=== PATIENT | male | born 1955 | race Caucasian/White ===

== ENCOUNTER 2017-01-02 13:58 | Inpatient (IN) | payer MEDICAID ==
[~2017-01-02] VITALS: Ht 182.9 cm; Wt 81.8 kg
--- NOTE | 2017-01-02 14:04 | ERA ---
ER Documentation Chief Complaint Date/Time DATE: 01/02/17 TIME: 14:03 Chief Complaint Altered level of consciousness HPI The patient is a 61-year-old male, presenting to the ER because of acute altered level of consciousness that happened about 5-10 minutes prior to arrival. He was sitting at work when his coworkers noted him shaking and altered. He did not have any trauma. He was unable to provide any history upon arrival to the ER neither to the journeyman painter or myself. We will unable to obtain any history from the patient Past medical/surgical history/SH: Unknown upon arrival, however he stated that he has history of high blood pressure but noncompliant with his medication when he was awake later. He also smokes about half a pack a day, denies drinking, denies illicit drug ROS All systems reviewed and are negative except as per history of present illness. Medications Home Meds Reported Medications Aspirin (Low Dose Aspirin) 81 Mg Tablet., 81 MG PO DAILY, #30 TAB 01/02/17 Allergies Allergies: Uncoded Allergies: OYSTER (Allergy, Unknown, 01/02/17) Physical Exam Vitals Vital Signs Date Time Temp Pulse Resp B/P Pulse Ox O2 Delivery O2 Flow Rate FiO2 01/02/17 17:58 72 19 153/89 98 Nasal Cannula 2.0 01/02/17 16:22 62 18 145/103 98 Nasal Cannula 2.0 01/02/17 15:42 2.0 01/02/17 14:22 Nasal Cannula 3 01/02/17 14:09 98.8 93 20 150/90 98 Physical Exam Const: No acute distress. Head: Atraumatic. Eyes: Normal Conjunctiva. ENT: Normal External Ears, Nose and Mouth. Neck: Full range of motion. No meningismus. Resp: Clear to auscultation bilaterally. Cardio: Regular rate and rhythm. Abd: Soft, non distended, normal bowel sounds, non tender. Skin: No petechiae or rashes. Back: No midline or flank tenderness. Ext: No cyanosis, or edema. Neur: Altered. Unable to follow commands nor speak. He has some movement in the upper extremity but no movement in lower extremities Psych: Unable to perform due to his condition Result Diagram: 01/02/17 1405 01/02/17 1405 Results 24 hrs Laboratory Tests Test 01/02/17 14:05 01/02/17 14:56 01/02/17 16:00 White Blood Count 9.910^3/ul Red Blood Count 5.2310^6/ul Hemoglobin 16.5g/dl Hematocrit 47.8% Mean Corpuscular Volume 91.4fl Mean Corpuscular Hemoglobin 31.5pg Mean Corpuscular Hemoglobin Concent 34.5g/dl Red Cell Distribution Width 12.4% Platelet Count 72129^3/UL Mean Platelet Volume 9.2fl Neutrophils % 44.7% Lymphocytes % 37.7% Monocytes % 10.1% Eosinophils % 6.0% Basophils % 0.9% Nucleated Red Blood Cells % 0.0/100WBC Neutrophils # 4.410^3/ul Lymphocytes # 3.710^3/ul Monocytes # 1.010^3/ul Eosinophils # 0.610^3/ul Basophils # 0.110^3/ul Nucleated Red Blood Cells # 0.010^3/ul Prothrombin Time 13.1Sec Prothrombin Time Ratio 1.0 INR International Normalized Ratio 0.99 Activated Partial Thromboplast Time 28.4Sec Sodium Level 144mmol/L Potassium Level 4.7mmol/L Chloride Level 102mmol/L Carbon Dioxide Level 30mmol/L Anion Gap 17 Blood Urea Nitrogen 15mg/dl Creatinine 1.01mg/dl Glucose Level 100mg/dl Hemoglobin A1c 5.5% Calcium Level 9.7mg/dl Ammonia 19umol/l Troponin I 0.025ng/ml Salicylates Level < 1.0mg/dl Acetaminophen Level < 10.0ug/ml Ethyl Alcohol Level < 10.0mg/dl Bedside Glucose 95mg/dL Urine Color YELLOW Urine Clarity CLEAR Urine pH 9.0 Urine Specific [place] 1.011 Urine Ketones NEGATIVEmg/dL Urine Nitrite NEGATIVEmg/dL Urine Bilirubin NEGATIVEmg/dL Urine Urobilinogen 1+mg/dL Urine Leukocyte Esterase NEGATIVELeu/ul Urine Hemoglobin NEGATIVEmg/dL Urine Glucose NEGATIVEmg/dL Urine Total Protein NEGATIVEmg/dl Urine Opiates Screen NEGATIVE Urine Barbiturates NEGATIVE Urine Amphetamines Screen NEGATIVE Urine Benzodiazepines Screen NEGATIVE Urine Cocaine Screen NEGATIVE Urine Cannabinoids POSITIVE Current Medications Medications (Trade) Dose Ordered Sig/Giorgi Route PRN Reason Start Time Stop Time Status Last Admin Dose Admin Clopidogrel Bisulfate (plaVIX) 75 mg ONCE ONCE PO 01/02/17 15:00 01/02/17 15:01 DC 01/02/17 14:47 Aspirin (Aspirin) 325 mg ONCE ONCE PO 01/02/17 15:00 01/02/17 15:01 DC 01/02/17 14:47 IV Flush (NS 3 ml) 3 ml PER PROTOCOL IV 01/02/17 18:00 Ondansetron HCl (Zofran Inj) 4 mg Q6H PRN IV NAUSEA AND/OR VOMITING 01/02/17 18:00 Aspirin (Aspirin) 81 mg DAILY PO 01/03/17 09:00 Clopidogrel Bisulfate (plaVIX) 75 mg DAILY PO 01/03/17 09:00 Acetaminophen (Tylenol Tab) 650 mg Q6H PRN PO PAIN LEVEL 1-3 OR FEVER 01/02/17 18:00 Acetaminophen/ Hydrocodone Bitart ([place] (5/325)) 1 tab Q6H PRN PO PAIN LEVEL 4-6 01/02/17 18:00 Morphine Sulfate (morphine) 2 mg Q4H PRN IV PAIN LEVEL 7-10 01/02/17 18:00 Magnesium Hydroxide (Milk Of Mag) 30 ml DAILY PRN PO CONSTIPATION 01/02/17 18:00 Bisacodyl (Dulcolax) 5 mg DAILY PRN PO CONSTIPATION 01/02/17 18:00 Famotidine (Pepcid) 20 mg Q12 PO 01/02/17 21:00 Atorvastatin Calcium (Lipitor) 40 mg HS PO 01/02/17 21:00 Procedures/[place] [id number] Radiology Main Line: [phone] DIAGNOSTIC IMAGING REPORT Patient: CARLI CATALAN : 01/01/1956 Age: 61 Sex: M MR #: [id number] DOS: 01/02/17 1404 Ordering MD: AJ PEDRAZA MD Location: E/R Room/Bed: PROCEDURE: XR Chest. CLINICAL INDICATION: Chest pain , CVA TECHNIQUE: Single portable view of the chest was obtained COMPARISON: None FINDINGS: The heart is enlarged. The lungs are clear. There is no pleural effusion or pneumothorax. RPTAT: AA IMPRESSION: Mild Cardiomegaly. .Otis Quigley MD, MD Date Time Electronically viewed and signed by .Otis Quigley MD, MD on 01/02/2017 15: 09 .S/ CC: AJ PEDRAZA MD [place] [address] Radiology Main Line: [phone] DIAGNOSTIC IMAGING REPORT Patient: CARLI CATALAN : 01/01/1956 Age: 61 Sex: M MR #: [id number] DOS: 01/02/17 1404 Ordering MD: AJ PEDRAZA MD Location: E/R Room/Bed: PROCEDURE: CT Brain without contrast. CLINICAL INDICATION: Possible Stroke TECHNIQUE: A CT of the brain was performed on a [employer] LightSpeed 64-slice CT scanner utilizing axial imaging from the skull base through the vertex without IV contrast. Multiplanar reformatted images were made. Images were reviewed on a PACS workstation. The CTDIvol is 39.56 mGy and the DLP is 720.23 mGycm. COMPARISON: None FINDINGS: There are areas of encephalomalacia in the right parietal lobe, nonspecific but compatible with chronic / prior infarcts. However, there are areas of loss of hurst-white matter differentiation in the right parietal lobe and extending into the right posterior temporal lobe, compatible with a superimposed acute ischemic stroke. In addition, there is focal loss of hurst-white matter differentiation in the right frontal opercular region, also consistent with acute ischemic ischemic stroke. There is no midline shift or significant mass effect. There is no evidence of acute intracranial hemorrhage. There is moderate diffuse cerebral volume loss, likely age-related. The visualized orbits are unremarkable. Mucosal disease is seen within the partially imaged bilateral ethmoid sinuses. The partially imaged mastoid air cells are clear. No acute fracture or suspicious osseous lesion is identified. IMPRESSION: 1. Evidence of acute ischemia/infarct in the right inferior parietal lobe, right posterior temporal lobe, and right frontal operculum. More superiorly within the right parietal lobe and adjacent to the trigone of the right lateral ventricle, there are areas of encephalomalacia, compatible with old/chronic infarcts. MRI brain may provide a more sensitive and specific evaluation for acute and/or chronic ischemic injury. 2. No evidence of acute intracranial hemorrhage. 3. Critical findings were discussed with Dr. Pedraza of [facility] ED via phone at 14:28 on 01/02/2017. RPTAT: PP Piage Merlos Physician Date Time Electronically viewed and signed by Paige Merlos Physician on 01/02/2017 14: 49 RC/ CC: AJ PEDRAZA MD EKG: Read by emergency physician Rate/Rhythm: Normal Sinus Rhythm 73 beats/min QRS, ST, T-waves: No ST elevation, no T inversion, PAC, lateral inferior T abnormality Impression: Abnormal EKG MEDICAL MAKING DECISION: The patient is a 61-year-old male, presenting with acute stroke with spontaneous recovery, most likely TIA. Code stroke was activated immediately after I evaluated the patient at 2:04 PM. I discussed the patient with the stroke neurologist Dr Mckay at 2:10 PM and again at 2:30 PM who did not recommend TPA because of uncertain onset and recommended aspirin and Plavix and admitted for further evaluation with MRI is of the brain and the neck. He was treated with aspirin 325 mg as needed Plavix 75 mg p.o. On reevaluation, he is awake, alert, but was not aware of what happened to him. Neurological exam is unremarkable The differential diagnoses considered include but are not limited to TIA, CVA, medication non-compliance, alcohol intoxication or withdrawal, drug intoxication or withdrawal, endocrine disorder, trauma, CVA, tumor, metabolic encephalopathy, septic encephalopathy. Critical Care: Time: 35 minutes excluding all billable procedures. Treatments/Evaluations: Close monitoring and treatment of unstable vital signs, cardiorespiratory, and neurologic status, while maintaining tight balance of fluid, respiratory, and cardiac interventions. Departure Diagnosis: Primary Impression: Acute embolic stroke Condition: Serious Comments I discussed the findings with the patient. I discussed the patient with the on- call hospitalist Dr Peres who was made aware of the lab, the treatment, the patient condition. The patient is admitted to Tel at 2:15 pm AJ PEDRAZA MD Jan 02, 2017 14:04
[2017-01-02 14:18] LABS: BASOPHIL # 0.1 10^3/ul (0.0-0.1); BASOPHILS % 0.9 % (0.0-2.0); EOSINOPHILS # 0.6 10^3/ul (0.0-0.5); HEMATOCRIT 47.8 % (42.0-52.0); HEMOGLOBIN 16.5 g/dl (14.0-18.0); LYMPHOCYTES # 3.7 10^3/ul (0.8-2.9); LYMPHOCYTES % 37.7 % (15.0-51.0); MEAN CORPUSCULAR HEMOGLOBIN 31.5 pg (29.0-33.0); MEAN CORPUSCULAR HGB CONC 34.5 g/dl (32.0-37.0); MEAN CORPUSCULAR VOLUME 91.4 fl (82.0-101.0); MEAN PLATELET VOLUME 9.2 fl (7.4-10.4); MONOCYTES % 10.1 % (0.0-11.0); NEUTROPHIL # 4.4 10^3/ul (1.6-7.5); NEUTROPHILS % 44.7 % (39.0-77.0); PLATELET COUNT 203 10^3/UL (140-415); RED BLOOD COUNT 5.23 10^6/ul (4.70-6.10); RED CELL DISTRIBUTION WIDTH 12.4 % (11.5-14.5); WHITE BLOOD COUNT 9.9 10^3/ul (4.8-10.8)
[2017-01-02 14:34] LABS: INR 0.99; PROTIME 13.1 Sec (12.2-14.2)
[2017-01-02 14:35] LABS: PARTIAL THROMBOPLASTIN TIME 28.4 Sec (25.0-35.0)
[2017-01-02 14:39] LABS: ANION GAP 17 (8-16); BLOOD UREA NITROGEN 15 mg/dl (7-20); CALCIUM 9.7 mg/dl (8.4-10.2); CARBON DIOXIDE 30 mmol/L (21-31); CHLORIDE 102 mmol/L (97-110); CREATININE 1.01 mg/dl (0.61-1.24); GLUCOSE 100 mg/dl (70-220); POTASSIUM 4.7 mmol/L (3.5-5.1); SODIUM 144 mmol/L (135-144)
[2017-01-02 14:46] LABS: ACETAMINOPHEN < 10.0 ug/ml (10.0-30.0); SALICYLATE < 1.0 mg/dl (5.0-30.0)
[2017-01-02 14:47] LABS: ETHANOL < 10.0 mg/dl
--- NOTE | 2017-01-02 14:47 | STROKE ---
Date/Time of Note Date/Time of Note DATE: 01/02/17 TIME: 14:18 Patient Information General Patient location: emergency Arrival Date Age 61 Gender male Weight 81.82 kg Vital Signs Vital Signs Vital Signs Date Time Temp Pulse Resp B/P Pulse Ox O2 Delivery O2 Flow Rate FiO2 01/02/17 14:09 98.8 93 20 150/90 98 Labs Hematology Labs Hematology Test 01/02/17 14:05 History & Physical Patient History Notes Pt Hx Reviewed History of Present Illness 61yo M presents with acute onset left sided weakness. Patient was at work and was observed to be shaking and not responding to questions. EMS was called at 1 :30pm. No further history is available at this time. Review of Systems Constitutional: no symptoms reported EENTM: no symptoms reported Respiratory: no symptoms reported Cardiovascular: no symptoms reported Gastrointestinal: no symptoms reported Genitourinary: no symptoms reported Musculoskeletal: no symptoms reported Skin: no symptoms reported Psychiatric/Neurological: no symptoms reported All Other Systems: Reviewed and Negative NIH Stroke Scale NIH Stroke Scale 1A - Level of Conciousness: 0 - Alert keenly [id number] LOC Questions: 0 - Answers both [id number] - LOC Commands: 1 - Performs one task2 - Best Gaze: 0 - Normal3 - Visual: 0 - No visual loss4 - Facial Palsy: 1 - Partial Akilayelon1H - Motor Arm - Left: 2 - Some effort to [id number] - Motor Arm - Right: 0 - No [id number] - Motor Leg - Left: 4 - No xlirbrbi4H - Motor Leg - Right: 4 - No movement7 - Limb Ataxia: 0 - Absent8 - Sensory: 0 - Normal9 - Best Language: 0 - No aphasia or normalDysarthria: 0 - NormalTotal Score: 12 Date/Time Recorded DATE: 01/02/17 TIME: 14:18 Submitted By Tarik Broderick t-PA Imaging Review Imaging Reviewed: Yes Date/Time Imaging Reviewed DATE: 01/02/17 TIME: 14:18 Imaging Findings acute ischemia in right MCA distribution Inclusion/Exclusion Criteria greater than 1/3 distribution of right MCA t-PA Administration Recommendation: No Weight 81.82 kg Recommedation submitted by Tarik Broderick Reason t-PA not Recommended above exclusion criteria t-PA Not Recommended Date/Time 01/02/17 14:35 Recommendations Impression Diagnosis acute ischemic stroke Recommendation 61yo M presents with acute onset decreased responsiveness. Neurological exam is notable for left arm and leg weakness, mild disorientation, and slow responses to questions. CT Head demonstrates acute ischemic stroke of the right middle cerebral artery. Patient is not a TPA candidate due to having more than 1/3 of the distribution of the right MCA involved on CT Head. I believe patient is not a candidate for neurointerventional treatment as I suspect much of the stroke is completed, based on the CT findings. I recommend workup to include MRI Brain without gadolinium, MRA of the head without gadolinium, MRA of the neck with gadolinium, and transthoracic echocardiogram. I recommend aspirin 81mg and Plavix 75mg daily for 3 weeks. shelter antiplatelet therapy to be determined based on the results of these tests. Diagnostic Labs: Lipid Proile Hgb A1C CMP CBC w/Diff Coags Therapy: Physical Therapy Speech Therapy Occupational Therapy Misc. Recommendations: Bedside Swallow Evaluation Pnumatic Compression Devices Stroke Education Smoking Education TARIK BRODERICK Jan 02, 2017 14:34
--- NOTE | 2017-01-02 14:49 | RADRPT ---
PROCEDURE: CT Brain without contrast. CLINICAL INDICATION: Possible Stroke TECHNIQUE: A CT of the brain was performed on a GE [id number] 64-slice CT scanner utilizing axial imaging from the skull base through the vertex without IV contrast. Multiplanar reformatted images were made. Images were reviewed on a PACS workstation. The CTDIvol is 39.56 mGy and the DLP is 720 .23 mGycm. COMPARISON: None FINDINGS: There are areas of encephalomalacia in the right parietal lobe, nonspecific but compatible with marketing director roly / prior infarcts. However, there are areas of loss of hurst-white matter differentiation in the right parietal lobe and extending into the right posterior temporal lobe, compatible with a superimp osed acute ischemic stroke. In addition, there is focal loss of hurst-white matter differentiation in the right frontal opercular region, also consistent with acute ischemic ischemic stroke. There is no midline shift or significant mass effect. There is no evidence of acute intracranial hemorrhage. There is moderate diffuse cerebral volume loss, likely age-related. The visualized orbits are unremarkable. Mucosal disease is seen within the partially imaged bilateral ethmoid sinuses. The partially imaged mastoid air cells are clear. No acute fracture or suspicious osseous lesion is identified. IMPRESSION: 1. Evidence of acute ischemia/infarct in the right inferior parietal lobe, right posterior temporal lobe, and right frontal operculum. More superiorly within the right parietal lobe and adjacent to t he trigone of the right lateral ventricle, there are areas of encephalomalacia, compatible with old/ chronic infarcts. MRI brain may provide a more sensitive and specific evaluation for acute and/or ch ronic ischemic injury. 2. No evidence of acute intracranial hemorrhage. 3. Critical findings were discussed with Dr. Sanchez of [facility] ED via phone at 1 4:28 on 01/02/2017. RPTAT: PP Physician Carolina Date Time Electronically viewed and signed by Physician Carolina on 01/02/2017 14:49 /
[2017-01-02 14:50] LABS: TROPONIN-I 0.025 ng/ml (0.00-0.12)
[2017-01-02] MEDS ORDERED: ASPIRIN 325 MG TAB PO ONE (15:00)
[2017-01-02] MEDS ORDERED: CLOPIDOGREL 75 MG TAB PO ONE (15:00)
--- NOTE | 2017-01-02 15:10 | RADRPT ---
PROCEDURE: XR Chest. CLINICAL INDICATION: Chest pain , CVA TECHNIQUE: Single portable view of the chest was obtained COMPARISON: None FINDINGS: The heart is enlarged. The lungs are clear. There is no pleural effusion or pneumothorax. RPTAT: AA IMPRESSION: Mild Cardiomegaly. .Otis Quigley MD, Date Time Electronically viewed and signed by .Otis Quigley MD, on 01/02/2017 15:09 .S/
[2017-01-02] MEDS ORDERED: ASPI-664 PO (15:13)
[2017-01-02 16:17] LABS: ADD UMIC NO; UR ASCORBIC ACID NEGATIVE (NEGATIVE); UR BILIRUBIN (Dip) NEGATIVE (NEGATIVE); UR BLOOD (Dip) NEGATIVE (NEGATIVE); UR CLARITY CLEAR (CLEAR); UR COLOR YELLOW (YELLOW); UR GLUCOSE (Dip) NEGATIVE (NEGATIVE); UR KETONES (Dip) NEGATIVE (NEGATIVE); UR LEUKOCYTE ESTERASE (Dip) NEGATIVE Leu/ul (NEGATIVE); UR NITRITE (Dip) NEGATIVE (NEGATIVE); UR SPECIFIC GRAVITY (Dip) 1.011 (1.003-1.030); UR TOTAL PROTEIN (Dip) NEGATIVE (NEGATIVE); UR UROBILINOGEN (Dip) 1+ mg/dL (NEGATIVE)
[2017-01-02 16:42] LABS: BARBITURATES NEGATIVE (NEGATIVE); BENZODIAZEPINES NEGATIVE (NEGATIVE); CANNABINOIDS POSITIVE (NEGATIVE); COCAINE NEGATIVE (NEGATIVE); OPIATES NEGATIVE (NEGATIVE)
--- NOTE | 2017-01-02 17:40 | HP ---
Date/Time of Note Date/Time of Note DATE: 01/02/17 TIME: 17:39 Assessment/Plan VTE Prophylaxis VTE Prophylaxis Intervention: SCD's Assessment/Plan Chief Complaint/Hosp Course 1. Acute ischemic infarct in the right inferior parietal lobe, right posterior temporal lobe, and right frontal operculum. The patient will be started on dual antiplatelet therapy as per the recommendations of teleneurologist. A neurology consult will be obtained. Carotid Doppler study will be obtained. A 2D echocardiogram will be obtained. Will obtain a physical therapy, occupational therapy, and speech therapy evaluation. Baseline labs including coagulation studies, hemoglobin A1c, lipid panel will be obtained. The patient will also be started on statins. 2. Essential hypertension. The patient verbalized that he has not been taking any medications at home. The patient will be allowed for permissive hypertension because of underlying acute stroke. 3. Nicotine use. Cessation will be advised. The patient will be provided with a nicotine patch if he has any symptoms of nicotine withdrawal. Plan: The patient will be admitted to inpatient telemetry floor. The patient will be started on a low-cholesterol diet. The patient will be started on DVT prophylaxis and gastrointestinal prophylaxis. The patient will remain a full code. Activities will be with assist. The rest of the patient's management will be based on the clinical course, inputs from consultants, and the results of diagnostic studies. Based on the patient's clinical presentation, he most probably requires at least 1 midnight's stay for further management and evaluation of his clinical presentation. The case and management of this patient was fully discussed with Dr. Peres. Problems: HPI/ROS Admit Date/Time Admit Date/Time Hx of Present Illness Reason for admission: Altered mental status. Consultants 1. Bryn Robert MD, Neurology. This is a 61-year-old male who denied any significant past medical history other than possible history of essential hypertension who was brought to the emergency room after he started acute mental status changes. As per the patient he was sitting at work. The patient's coworkers noted him shaking and and as per the patient he went backward with his rocking chair. The patient denied hitting his head. There was no reported seizures. A code stroke was activated in the emergency room. The patient underwent a stat CT scan of the brain that showed evidence of acute ischemia/infarct in the right inferior parietal lobe, right posterior temporal lobe and right frontal operculum. The patient was seen by a telemetry neurologist. Telemetry neurologist recommended no TPA. However, the neurologist recommended aspirin and Plavix. ROS Constitutional: no complaints Eyes: no complaints ENT: no complaints Respiratory: no complaints Cardiovascular: no complaints Gastrointestinal: no complaints Genitourinary: no complaints Musculoskeletal: no complaints Skin: no complaints Neurologic: no complaints Endocrine: no complaints Lymphatic: no complaints Psychological: anxiety Immunologic: no complaints PMH/Family/Social Past Medical History Medical History: hypertension Family History Significant Family History: hypertension Social History The patient works in [employer]. When asked about the living situation, the patient was crying. Alcohol Use: none Smoking Status: Current every day smoker Drug Use: marijuana Exam/Review of Systems Vital Signs Vitals Vital Signs Date Time Temp Pulse Resp B/P Pulse Ox O2 Delivery O2 Flow Rate FiO2 01/02/17 16:22 62 18 145/103 98 Nasal Cannula 2.0 01/02/17 14:09 98.8 Exam Exam General: Adequately build 61 year-old male lying in bed in no apparent distress. HEENT: Normocephalic, atraumatic. Eyes: Anicteric sclerae, conjunctivae clear. ENT: Nasal septum midline, oral mucosa moist. Neck supple, no JVD noticed. Respiratory: Bilaterally diminished breath sounds. No use of accessory muscles of respiration. No adventitious breath sounds. Cardiovascular: S1, S2 heard. No murmurs or gallops. Abdomen: Soft, nontender, and nondistended. Bowel sounds positive in all 4 quadrants. Genitourinary: Deferred. Extremities: No cyanosis, no clubbing, no edema. Peripheral pulses palpable. Neurologic: Cranial nerves II through XII grossly intact. The patient is awake, alert, and oriented. Equal strength in all 4 extremities. Psychologic: Depressed mood. Labs Result Diagram: 01/02/17 1405 01/02/[address] IMPRESSION: 1. Evidence of acute ischemia/infarct in the right inferior parietal lobe, right posterior temporal lobe, and right frontal operculum. More superiorly within the right parietal lobe and adjacent to the trigone of the right lateral ventricle, there are areas of encephalomalacia, compatible with old/chronic infarcts. MRI brain may provide a more sensitive and specific evaluation for acute and/or chronic ischemic injury. 2. No evidence of acute intracranial hemorrhage. COLLIN WINTER NP Jan 02, 2017 17:40
[2017-01-02] MEDS ORDERED: ONDANSETRON 4 MG INJ IV PRN (18:00)
[2017-01-02] MEDS ORDERED: morphine 2 MG INJ IV PRN (18:00)
[2017-01-02] MEDS ORDERED: NACL 0.9% 3 ML SYG IV SCH (18:00)
[2017-01-02] MEDS ORDERED: HYDROCODONE/APAP (5/325) TAB PO PRN (18:00)
[2017-01-02] MEDS ORDERED: ACETAMINOPHEN 325 MG TAB PO PRN (18:00)
[2017-01-02] MEDS ORDERED: MAGNESIUM HYDROXIDE 30ML CUP PO PRN (18:00)
[2017-01-02] MEDS ORDERED: BISACODYL (EC) 5 MG TAB PO PRN (18:00)
[2017-01-02 18:30] VITALS: TEMP 98.7
--- NOTE | 2017-01-02 18:58 | RADRPT ---
PROCEDURE: US Carotids. CLINICAL INDICATION: Stroke. TECHNIQUE: Multiple sonographic of the carotid arteries were obtained utilizing hurst scale imaging . Color and Doppler imaging was performed. The images were reviewed on a PACS workstation. COMPARISON: No prior studies are available for comparison. FINDINGS: Location:RightLeft CCA59.4 cm/sec60.3 cm/sec Prox ICA73.2 cm/coc888.9 cm/sec Mid ICA63.3 cm/scy353.6 cm/sec Dist ICA67.9 cm/gyc660.7 cm/sec ECA83.1 cm/chq150.0 cm/sec ICA/CCA:1.2 2.1 Antegrade flow is seen within the vertebral arteries bilaterally. Mild plaque is seen within the car otid system bilaterally. IMPRESSION: 1. 50-69% stenosis of the left internal carotid artery. 2. No significant stenosis of the right carotid arteries. 3. Antegrade flow in both vertebral arteries. Note: Ultrasound velocity criteria are extrapolated from diameter data as defined by the Society of Radiologists in Ultrasound Consensus Conference Radiology 2003; 229;340-346. This study indirectly r eferences the measurement of the distal ICA diameter as the denominator for stenosis measurement. RPTAT: HTAR .Dg Borges MD, Date Time Electronically viewed and signed by .Dg Borges MD, on 01/02/2017 18:58 .R/
[2017-01-02 20:58] VITALS: PULSE 67
[2017-01-02 21:07] VITALS: BP 165/96; RESP 20
[2017-01-02] MEDS: FAMOTIDINE 20 MG TAB PO SCH (21:47)
[2017-01-02] MEDS: ATORVASTATIN 40 MG TAB PO SCH (21:47)
[2017-01-03] VITALS (11 sets, daily range): BP systolic 136–185; BP diastolic 90–107; PULSE 58–116; RESP 18–20
[2017-01-03 08:00] LABS: BASOPHIL # 0.1 10^3/ul (0.0-0.1); BASOPHILS % 0.5 % (0.0-2.0); EOSINOPHILS # 0.3 10^3/ul (0.0-0.5); EOSINOPHILS % 2.1 % (0.0-7.0); HEMATOCRIT 50.9 % (42.0-52.0); HEMOGLOBIN 17.3 g/dl (14.0-18.0); LYMPHOCYTES # 2.9 10^3/ul (0.8-2.9); LYMPHOCYTES % 20.1 % (15.0-51.0); MEAN CORPUSCULAR HEMOGLOBIN 30.6 pg (29.0-33.0); MEAN CORPUSCULAR VOLUME 89.9 fl (82.0-101.0); MEAN PLATELET VOLUME 9.5 fl (7.4-10.4); MONOCYTE # 1.2 10^3/ul (0.3-0.9); NEUTROPHILS % 68.6 % (39.0-77.0); PLATELET COUNT 220 10^3/UL (140-415); RED BLOOD COUNT 5.66 10^6/ul (4.70-6.10); RED CELL DISTRIBUTION WIDTH 12.6 % (11.5-14.5); WHITE BLOOD COUNT 14.6 10^3/ul (4.8-10.8)
[2017-01-03] MEDS: ASPIRIN 81 MG TAB PO SCH (08:24)
[2017-01-03] MEDS: CLOPIDOGREL 75 MG TAB PO SCH (08:24)
[2017-01-03] MEDS: FAMOTIDINE 20 MG TAB PO SCH ×2 (08:24→22:18)
[2017-01-03 08:37] LABS: ALBUMIN 4.2 g/dl (3.3-4.9); ALBUMIN/GLOBULIN RATIO 1.1; BILIRUBIN,INDIRECT 1.3 mg/dl (0-1.1); BILIRUBIN,TOTAL 1.3 mg/dl (0.2-1.3); CALCIUM 9.9 mg/dl (8.4-10.2); CREATININE 0.97 mg/dl (0.61-1.24); POTASSIUM 4.5 mmol/L (3.5-5.1)
[2017-01-03 08:45] LABS: CHOL/HDL RATIO 4.8 RATIO; PHOSPHORUS 3.7 mg/dl (2.5-4.9)
[2017-01-03 08:46] LABS: TROPONIN-I 0.038 ng/ml (0.00-0.12)
[2017-01-03 08:53] LABS: CK-MB 1.2 ng/ml (0.0-2.4)
--- NOTE | 2017-01-03 11:39 | PN ---
Date/Time of Note Date/Time of Note DATE: 01/03/17 TIME: 11:36 Assessment/Plan VTE Prophylaxis VTE Prophylaxis Intervention: SCD's Lines/Catheters IV C[facility]ter Type (from [facility] Saline Lock Urinary Cath still in place: No Assessment/Plan Chief Complaint/Hosp Course 1. Acute ischemic infarct in the right inferior parietal lobe, right posterior temporal lobe, and right frontal operculum. Continue dual antiplatelet therapy. Pending brain MRI. Pending neurology consult. 2. Essential hypertension. The patient verbalized that he has not been taking any medications at home. The patient will be allowed for permissive hypertension because of underlying acute stroke. 3. Nicotine use. Cessation will be advised. The patient will be provided with a nicotine patch if he has any symptoms of nicotine withdrawal. 4. Fluids, electrolytes, and nutrition. Low-cholesterol diet. 5. DVT prophylaxis. Bilateral sequential compression devices. 6. Gastrointestinal prophylaxis with histamine 2 receptor blockers. 7. Plan. Continue telemetry monitoring. Await neurology evaluation. Pending brain MRI. Continue dual antiplatelet therapy and statin therapy. The case and management of this patient was fully discussed with Dr. Peres. Problems: Subjective 24 Hr Interval Summary Free Text/Dictation Denies any headache. Exam/Review of Systems Vital Signs Vitals Vital Signs Date Time Temp Pulse Resp B/P Pulse Ox O2 Delivery O2 Flow Rate FiO2 01/03/17 08:22 67 01/03/17 07:20 98.3 18 138/94 97 01/03/17 01:50 2.0 01/02/17 20:04 Room Air Nasal Cannula Intake and Output 01/02/17 01/02/17 01/03/17 15:00 23:00 07:00 Intake Total 300 ml Output Total 1050 ml Balance -1050 ml 300 ml Exam General: Adequately build 61 year-old male lying in bed in no apparent distress. HEENT: Normocephalic, atraumatic. Eyes: Anicteric sclerae, conjunctivae clear. ENT: Nasal septum midline, oral mucosa moist. Neck supple, no JVD noticed. Respiratory: Bilaterally diminished breath sounds. No use of accessory muscles of respiration. No adventitious breath sounds. Cardiovascular: S1, S2 heard. No murmurs or gallops. Abdomen: Soft, nontender, and nondistended. Bowel sounds positive in all 4 quadrants. Genitourinary: Deferred. Extremities: No cyanosis, no clubbing, no edema. Peripheral pulses palpable. Neurologic: Cranial nerves II through XII grossly intact. The patient is awake, alert, and oriented. Equal strength in all 4 extremities. Psychologic: Depressed mood. Results Result Diagram: 01/03/17 0735 01/03/17 0735 Results 24 hrs Laboratory Tests Test 01/02/17 14:05 01/02/17 14:56 01/02/17 16:00 01/03/17 07:35 White Blood Count 9.9 14.6 #H Red Blood Count 5.23 5.66 Hemoglobin 16.5 17.3 Hematocrit 47.8 50.9 Mean Corpuscular Volume 91.4 89.9 Mean Corpuscular Hemoglobin 31.5 30.6 Mean Corpuscular Hemoglobin Concent 34.5 34.0 Red Cell Distribution Width 12.4 12.6 Platelet Count 203 220 Mean Platelet Volume 9.2 9.5 Neutrophils % 44.7 68.6 Lymphocytes % 37.7 20.1 Monocytes % 10.1 8.0 Eosinophils % 6.0 2.1 Basophils % 0.9 0.5 Nucleated Red Blood Cells % 0.0 0.0 Neutrophils # 4.4 10.0 H Lymphocytes # 3.7 H 2.9 Monocytes # 1.0 H 1.2 H Eosinophils # 0.6 H 0.3 Basophils # 0.1 0.1 Nucleated Red Blood Cells # 0.0 0.0 Prothrombin Time 13.1 Prothrombin Time Ratio 1.0 INR International Normalized Ratio 0.99 Activated Partial Thromboplast Time 28.4 Sodium Level 144 145 H Potassium Level 4.7 4.5 Chloride Level 102 102 Carbon Dioxide Level 30 27 Anion Gap 17 H 21 H Blood Urea Nitrogen 15 15 Creatinine 1.01 0.97 Glucose Level 100 110 Hemoglobin A1c 5.5 Calcium Level 9.7 9.9 Ammonia 19 Troponin I 0.025 0.038 Thyroid Stimulating Hormone (TSH) 1.610 Free Thyroxine 1.22 Salicylates Level < 1.0 L Acetaminophen Level < 10.0 L Ethyl Alcohol Level < 10.0 Bedside Glucose 95 Urine Color YELLOW Urine Clarity CLEAR Urine pH 9.0 Urine Specific [place] 1.011 Urine Ketones NEGATIVE Urine Nitrite NEGATIVE Urine Bilirubin NEGATIVE Urine Urobilinogen 1+ H Urine Leukocyte Esterase NEGATIVE Urine Hemoglobin NEGATIVE Urine Glucose NEGATIVE Urine Total Protein NEGATIVE Urine Opiates Screen NEGATIVE Urine Barbiturates NEGATIVE Urine Amphetamines Screen NEGATIVE Urine Benzodiazepines Screen NEGATIVE Urine Cocaine Screen NEGATIVE Urine Cannabinoids POSITIVE Phosphorus Level 3.7 Magnesium Level 2.0 Total Bilirubin 1.3 Direct Bilirubin 0.00 Indirect Bilirubin 1.3 H Aspartate Amino Transf (AST/SGOT) 29 Alanine Aminotransferase (ALT/SGPT) 26 Alkaline Phosphatase 81 Creatine Kinase 75 Creatine Kinase Index 1.6 Creatinine Kinase MB (Mass) 1.20 Total Protein 8.0 Albumin 4.2 Globulin 3.80 H Albumin/Globulin Ratio 1.10 Triglycerides Level 80 Cholesterol Level 190 LDL Cholesterol, Calculated 135 HDL Cholesterol 39 Cholesterol/HDL Ratio 4.8 Medications Medications Current Medications Ondansetron HCl (Zofran Inj) 4 mg Q6H PRN IV NAUSEA AND/OR VOMITING; Start at 18:00 Aspirin (Aspirin) 81 mg DAILY PO Last administered on 01/03/17 08:24; Admin Dose 81 MG; Start 01/03/17 at 09:00 Clopidogrel Bisulfate (plaVIX) 75 mg DAILY PO Last administered on 01/03/17 08 :24; Admin Dose 75 MG; Start 01/03/17 at 09:00 Acetaminophen (Tylenol Tab) 650 mg Q6H PRN PO PAIN LEVEL 1-3 OR FEVER; Start at 18:00 Acetaminophen/ Hydrocodone Bitart ([place] (5/325)) 1 tab Q6H PRN PO PAIN LEVEL 4 -6; Start 01/02/17 at 18:00 Morphine Sulfate (morphine) 2 mg Q4H PRN IV PAIN LEVEL 7-10; Start 01/02/17 at 18:00 Magnesium Hydroxide (Milk Of Mag) 30 ml DAILY PRN PO CONSTIPATION; Start at 18:00 Bisacodyl (Dulcolax) 5 mg DAILY PRN PO CONSTIPATION; Start 01/02/17 at 18:00 Famotidine (Pepcid) 20 mg Q12 PO Last administered on 01/03/17 08:24; Admin Dose 20 MG; Start 01/02/17 at 21:00 Atorvastatin Calcium (Lipitor) 40 mg HS PO Last administered on 01/02/17 21:47 ; Admin Dose 40 MG; Start 01/02/17 at 21:00 COLLIN WINTER NP Jan 03, 2017 11:39
--- NOTE | 2017-01-03 20:04 | RADRPT ---
PROCEDURE: MR Brain without contrast. CLINICAL INDICATION: Stroke TECHNIQUE: An MRI of the brain was performed on a 1.5 ani scanner utilizing the following sequen leta: Sagittal T1 weighted, axial T2 weighted, axial FLAIR, coronal GRE, and axial diffusion weighted with ADC mapping. COMPARISON: 01/02/2017 CT brain FINDINGS: Multiple foci of restricted diffusion within the right anterior superior frontal gyrus, medial poste rior parietal lobe and, left superior frontal gyrus superior precentral gyrus and left parietal lobu le compatible with multiple foci of acute / early subacute ischemic infarction. Diffusion weighted signal hyperintensity in the right middle frontal gyrus suggestive of late subacute ischemic infarct ion and right parietal lobe compatible with T2 shine through . These findings are suggestive of leila ro volume disease no evidence of hemorrhagic transformation. Encephalomalacia are with extensive gliosis involving the posterior right temporal and occipital lo bes with ex vacuo dilatation of the right lateral ventricle compatible with remote ischemic infarct. Extensive periventricular and subcortical white matter T2 signal hyperintensity foci compatible wi th sequelae of chronic microvascular ischemic injury. The ventricles and subarachnoid spaces are moderately prominent compatible with central cerebral and cerebellar volume loss. Infarcts in the left cerebellar hemisphere No hypointense signal abnormalities are seen on the GRE images to suggest the presence of blood degr adation products. The posterior fossa contents, brainstem, seventh - eighth cranial nerve complexes, pituitary axis, o rbits, paranasal sinuses, and mastoid air cells are otherwise unremarkable. Normal flow voids are visible in the proximal intracranial arteries and dural sinuses, indicating pa tency. IMPRESSION: 1. Multi focal restricted diffusion compatible with areas of acute / early subacute ischemic infarc tion. The distribution mitigates in favor of a likely embolic disease. No hemorrhagic transformatio n. 2. Diffusion weighted signal hyperintensity in the right middle frontal gyrus without restricted di ffusion suggestive of late subacute or chronic ischemic infarction. 3. Remote ischemic infarction and encephalomalacia with surrounding gliosis involving the right temp oral and occipital lobes with ex vacuo dilatation of the right lateral ventricle. Remote lacunar in farcts in the left cerebellar hemisphere. 4. Moderate central cerebral and cerebellar volume loss. RPTAT:AAJJ Physician Rose Date Time Electronically viewed and signed by Physician Rose on 01/03/2017 20:04 FLAKO/
[2017-01-03] MEDS: ATORVASTATIN 40 MG TAB PO SCH (22:18)
--- NOTE | 2017-01-03 22:37 | RADRPT ---
Echocardiogram Report Patient Name: CARLI CATALAN Gender: Male Date: 1955 Study Date: 03-Jan-2017 Blanket Maker: Eileen Acosta [facility] Location: [address] Ref. Physician: COLLIN WINTER Quality: Good Procedures: Transthoracic echocardiogram with complete 2D, M-Mode, and doppler examination. Indications: Evaluate Left Ventricular function. 2D/M Mode Doppler Measurement Value Normal Ranges Measurement Value Normal Ranges LVIDd 2D 4.7 3.5 - 5.6 cm AV Peak [place] 1.5 m/sec LVIDs 2D 2.8 2.1 - 4.1 cm AV Peak PG 8.9 mmHg LVPWd 2D 1.0 0.6 - 1.1 cm LVOT Peak Ramsey 0.7 m/sec IVSd 2D 1.1 0.6 - 1.1 cm LVOT Peak PG 2.1 mmHg AoR Diam 2D 2.6 2.0 - 3.7 cm MV E Peak Ramsey 0.8 m/sec LA Dimen 2D 3.5 2.3 - 4.0 cm MV A Peak Ramsey 0.6 m/sec MV E/A 1.2 MV Decel Time 189 msec MV Decel [place] 4 MV E/A 1.2 TR Peak Ramsey 2.7 m/sec TR Peak PG 29.3 mmHg RVSP 32.0 mmHg Findings Left Ventricle: Lower limits of normal systolic function. Normal left ventricular cavity size. Mild concentric left ventricular hypertrophy. Ejection fraction is visually estimated at 50 %. Abnormal Diastolic Function. Right Ventricle: Normal right ventricular size. Normal right ventricular systolic function. Left Atrium: The left atrium is normal in size. Right Atrium: The right atrium is normal in size. Mitral Valve: Mitral valve leaflets appear mildly thickened. Mild mitral annular calcification. Trace mitral regurgitation. Aortic Valve: Normal appearance of the aortic valve. No significant aortic stenosis or insufficiency. Tricuspid Valve: Normal appearance of the tricuspid valve. Estimated peak PA systolic pressure 32 mmHg. There is trace tricuspid regurgitation. Pulmonic Valve: Normal pulmonic valve appearance. Pericardium: Normal pericardium with no significant pericardial effusion. Aorta: Normal aortic root. IVC: Normal size and normal respiratory collapse consistent with normal right atrial pressure. Conclusions Lower limits of normal systolic function. Normal left ventricular cavity size. Mild concentric left ventricular hypertrophy. Ejection fraction is visually estimated at 50 %. Abnormal Diastolic Function. Normal right ventricular size. Normal right ventricular systolic function. The left atrium is normal in size. The right atrium is normal in size. No significant valvular stenosis or regurgitation seen. Normal pericardium with no significant pericardial effusion. Electronically Signed By: Robby Brito 03-Jan-2017 22:36:33 -0700 Patient Name: CARLI CATALAN Study Date: 03-Jan-2017 [id number]
--- NOTE | 2017-01-03 22:53 | CONS ---
Date/Time of Note Date/Time of Note DATE: 01/03/17 TIME: 22:44 Assessment/Plan Assessment/Plan Chief Complaint/Hosp Course neuroexam: AOx3, fluent speech, CN II-XII intact, perrl 3-2 mm, motor 5/5, no pron drift, sens int LT, pain, DTR UE2, LT 0, no babinski, coordination, gait OK A/P Acute ischemic CVAs, multiple, likely cardioembolic, given AFib. Consider cardiology eval. I'd recommend anticoagulation. Keep normotensive, euglycemic, increase statin [id number]., smoking cessation Problems: Consultation Date/Type/Reason Admit Date/Time Type of Consultation: neurology Reason for Consultation cva Hx of Present Illness 61 y/o male with hx of untreated HTN and smoking presented with acute AMS and left sided weakness, unsteady gait, all resolved. MRI bilateral multiple ischemic CVAs, small, largest right jason medial frontal area, several subacute CVAs on the right. Mild LVH on Echo. per nursing note today A.fib 110-150. Moderate left ICA stenosis. Eyes: no complaints ENT: no complaints Respiratory: no complaints Cardiovascular: no complaints Gastrointestinal: no complaints Genitourinary: no complaints Musculoskeletal: no complaints Skin: no complaints Neurologic: no complaints Lymphatic: no complaints Psychological: anxiety Immunologic: no complaints Past Medical History Medical History: hypertension Social History Alcohol Use: none Smoking Status: Current every day smoker Drug Use: marijuana Exam/Review of Systems Vital Signs Vitals Vital Signs Date Time Temp Pulse Resp B/P Pulse Ox O2 Delivery O2 Flow Rate FiO2 01/03/17 20:41 98.4 91 18 136/107 97 01/03/17 01:50 2.0 01/02/17 20:04 Room Air Nasal Cannula Intake and Output 01/02/17 01/02/17 01/03/17 15:00 23:00 07:00 Intake Total 300 ml Output Total 1050 ml Balance -1050 ml 300 ml Exam Constitutional: alert Head: atraumatic, normocephalic Neck: other (no bruits), supple Respiratory: clear to auscultation Cardiovascular: regular rate and rhythm Gastrointestinal: non-tender, soft Results Result Diagram: 01/03/17 0735 01/03/17 0735 Results 24 hrs Laboratory Tests Test 01/03/17 07:35 White Blood Count 14.6 #H Red Blood Count 5.66 Hemoglobin 17.3 Hematocrit 50.9 Mean Corpuscular Volume 89.9 Mean Corpuscular Hemoglobin 30.6 Mean Corpuscular Hemoglobin Concent 34.0 Red Cell Distribution Width 12.6 Platelet Count 220 Mean Platelet Volume 9.5 Neutrophils % 68.6 Lymphocytes % 20.1 Monocytes % 8.0 Eosinophils % 2.1 Basophils % 0.5 Nucleated Red Blood Cells % 0.0 Neutrophils # 10.0 H Lymphocytes # 2.9 Monocytes # 1.2 H Eosinophils # 0.3 Basophils # 0.1 Nucleated Red Blood Cells # 0.0 Sodium Level 145 H Potassium Level 4.5 Chloride Level 102 Carbon Dioxide Level 27 Anion Gap 21 H Blood Urea Nitrogen 15 Creatinine 0.97 Glucose Level 110 Calcium Level 9.9 Phosphorus Level 3.7 Magnesium Level 2.0 Total Bilirubin 1.3 Direct Bilirubin 0.00 Indirect Bilirubin 1.3 H Aspartate Amino Transf (AST/SGOT) 29 Alanine Aminotransferase (ALT/SGPT) 26 Alkaline Phosphatase 81 Creatine Kinase 75 Creatine Kinase Index 1.6 Creatinine Kinase MB (Mass) 1.20 Troponin I 0.038 Total Protein 8.0 Albumin 4.2 Globulin 3.80 H Albumin/Globulin Ratio 1.10 Triglycerides Level 80 Cholesterol Level 190 LDL Cholesterol, Calculated 135 HDL Cholesterol 39 Cholesterol/HDL Ratio 4.8 Medications Medications Current Medications Ondansetron HCl (Zofran Inj) 4 mg Q6H PRN IV NAUSEA AND/OR VOMITING; Start at 18:00 Aspirin (Aspirin) 81 mg DAILY PO Last administered on 01/03/17 08:24; Admin Dose 81 MG; Start 01/03/17 at 09:00 Clopidogrel Bisulfate (plaVIX) 75 mg DAILY PO Last administered on 01/03/17 08 :24; Admin Dose 75 MG; Start 01/03/17 at 09:00 Acetaminophen (Tylenol Tab) 650 mg Q6H PRN PO PAIN LEVEL 1-3 OR FEVER; Start at 18:00 Acetaminophen/ Hydrocodone Bitart ([place] (5/325)) 1 tab Q6H PRN PO PAIN LEVEL 4 -6; Start 01/02/17 at 18:00 Morphine Sulfate (morphine) 2 mg Q4H PRN IV PAIN LEVEL 7-10; Start 01/02/17 at 18:00 Magnesium Hydroxide (Milk Of Mag) 30 ml DAILY PRN PO CONSTIPATION; Start at 18:00 Bisacodyl (Dulcolax) 5 mg DAILY PRN PO CONSTIPATION; Start 01/02/17 at 18:00 Famotidine (Pepcid) 20 mg Q12 PO Last administered on 01/03/17 22:18; Admin Dose 20 MG; Start 01/02/17 at 21:00 Atorvastatin Calcium (Lipitor) 40 mg HS PO Last administered on 01/03/17 22:18 ; Admin Dose 40 MG; Start 01/02/17 at 21:00 MARCUS LOBATO MD Jan 03, 2017 22:53
[2017-01-04] VITALS (10 sets, daily range): BP systolic 109–157; BP diastolic 78–91; PULSE 79–150; RESP 16–18
[2017-01-04 06:25] LABS: BASOPHIL # 0.1 10^3/ul (0.0-0.1); BASOPHILS % 0.9 % (0.0-2.0); EOSINOPHILS # 0.6 10^3/ul (0.0-0.5); EOSINOPHILS % 4.5 % (0.0-7.0); HEMATOCRIT 54.3 % (42.0-52.0); HEMOGLOBIN 18.4 g/dl (14.0-18.0); LYMPHOCYTES # 4.5 10^3/ul (0.8-2.9); LYMPHOCYTES % 34.9 % (15.0-51.0); MEAN CORPUSCULAR HEMOGLOBIN 30.5 pg (29.0-33.0); MEAN CORPUSCULAR HGB CONC 33.9 g/dl (32.0-37.0); MEAN PLATELET VOLUME 9.4 fl (7.4-10.4); MONOCYTE # 1.3 10^3/ul (0.3-0.9); NEUTROPHIL # 6.3 10^3/ul (1.6-7.5); NEUTROPHILS % 49.2 % (39.0-77.0); PLATELET COUNT 237 10^3/UL (140-415); POSITIVE DIFF @See below; RED BLOOD COUNT 6.03 10^6/ul (4.70-6.10); RED CELL DISTRIBUTION WIDTH 12.6 % (11.5-14.5); WHITE BLOOD COUNT 12.9 10^3/ul (4.8-10.8)
[2017-01-04 07:10] LABS: ALBUMIN 4.4 g/dl (3.3-4.9); ALBUMIN/GLOBULIN RATIO 1.07; BILIRUBIN,INDIRECT 1.6 mg/dl (0-1.1); BILIRUBIN,TOTAL 1.6 mg/dl (0.2-1.3); CALCIUM 9.5 mg/dl (8.4-10.2); CREATININE 1.03 mg/dl (0.61-1.24); TOTAL PROTEIN 8.5 g/dl (6.1-8.1)
[2017-01-04 07:37] LABS: PHOSPHORUS 3.6 mg/dl (2.5-4.9)
[2017-01-04] MEDS: ASPIRIN 81 MG TAB PO SCH (09:00)
[2017-01-04] MEDS: CLOPIDOGREL 75 MG TAB PO SCH (09:00)
[2017-01-04] MEDS: FAMOTIDINE 20 MG TAB PO SCH (09:00)
[2017-01-04] MEDS ORDERED: METOPROLOL 25 MG TAB PO SCH (09:30)
--- NOTE | 2017-01-04 09:37 | PN ---
Date/Time of Note Date/Time of Note DATE: 01/04/17 TIME: 09:29 Assessment/Plan VTE Prophylaxis VTE Prophylaxis Intervention: LMWH Lines/Catheters IV [facility] (from [facility] Saline Lock Urinary Cath still in place: No Assessment/Plan Chief Complaint/Hosp Course 1. Acute ischemic infarct in the right inferior parietal lobe, right posterior temporal lobe, and right frontal operculum. Brain MRI showing multi focal restricted diffusion compatible with areas of acute/early subacute ischemic infarction. The MRI also revealed remote ischemic infarction and encephalomalacia with surrounding gliosis involving the right temporal and occipital lobes with remote lacunar infarcts in the left cerebellar hemisphere. The brain MRI also revealed evidence of late subacute or chronic ischemic infarction in the right middle frontal gyrus. Continue dual antiplatelet therapy. Status post evaluation by Neurology, Physical Therapy, Occupational Therapy, and Speech Therapy. 2. Paroxysmal atrial fibrillation. This could be the most probable reason for his underlying stroke. Neurology recommended anticoagulation. Will obtain Cardiology consult. 3. Essential hypertension. The patient will be started on appropriate antihypertensives. 4. Nicotine use. Cessation will be advised. The patient will be provided with a nicotine patch if he has any symptoms of nicotine withdrawal. 5. Fluids, electrolytes, and nutrition. Low-cholesterol diet. 6. DVT prophylaxis. Subcutaneous Lovenox. 7. Gastrointestinal prophylaxis with histamine 2 receptor blockers. 8. Plan. Continue telemetry monitoring. Call cardiology consult. The case and management of this patient was fully discussed with Dr. Peres. Problems: Subjective 24 Hr Interval Summary Free Text/Dictation The patient had episodes of paroxysmal atrial fibrillation. Exam/Review of Systems Vital Signs Vitals Vital Signs Date Time Temp Pulse Resp B/P Pulse Ox O2 Delivery O2 Flow Rate FiO2 01/04/17 08:54 150 01/04/17 04:19 98.2 16 141/81 94 01/03/17 01:50 2.0 01/02/17 20:04 Room Air Nasal Cannula Intake and Output 01/03/17 01/03/17 01/04/17 15:00 23:00 07:00 Intake Total 750 ml Balance 750 ml Exam General: Adequately build 61 year-old male lying in bed in no apparent distress. HEENT: Normocephalic, atraumatic. Eyes: Anicteric sclerae, conjunctivae clear. ENT: Nasal septum midline, oral mucosa moist. Neck supple, no JVD noticed. Respiratory: Bilaterally diminished breath sounds. No use of accessory muscles of respiration. No adventitious breath sounds. Cardiovascular: S1, S2 heard. No murmurs or gallops. Abdomen: Soft, nontender, and nondistended. Bowel sounds positive in all 4 quadrants. Genitourinary: Deferred. Extremities: No cyanosis, no clubbing, no edema. Peripheral pulses palpable. Neurologic: Cranial nerves II through XII grossly intact. The patient is awake, alert, and oriented. Equal strength in all 4 extremities. Results Result Diagram: 01/04/17 0551 01/04/17 0551 Results 24 hrs Laboratory Tests Test 01/04/17 05:51 White Blood Count 12.9 H Red Blood Count 6.03 Hemoglobin 18.4 H Hematocrit 54.3 H Mean Corpuscular Volume 90.0 Mean Corpuscular Hemoglobin 30.5 Mean Corpuscular Hemoglobin Concent 33.9 Red Cell Distribution Width 12.6 Platelet Count 237 Mean Platelet Volume 9.4 Neutrophils % 49.2 Lymphocytes % 34.9 Monocytes % 10.0 Eosinophils % 4.5 Basophils % 0.9 Nucleated Red Blood Cells % 0.0 Neutrophils # 6.3 Lymphocytes # 4.5 H Monocytes # 1.3 H Eosinophils # 0.6 H Basophils # 0.1 Nucleated Red Blood Cells # 0.0 Sodium Level 142 Potassium Level 4.0 Chloride Level 104 Carbon Dioxide Level 24 Anion Gap 18 H Blood Urea Nitrogen 17 Creatinine 1.03 Glucose Level 114 Calcium Level 9.5 Phosphorus Level 3.6 Magnesium Level 2.0 Total Bilirubin 1.6 H Direct Bilirubin 0.00 Indirect Bilirubin 1.6 H Aspartate Amino Transf (AST/SGOT) 29 Alanine Aminotransferase (ALT/SGPT) 25 Alkaline Phosphatase 86 Total Protein 8.5 H Albumin 4.4 Globulin 4.10 H Albumin/Globulin Ratio 1.07 HIV (1&2) Antibody Pending Medications Medications Current Medications Ondansetron HCl (Zofran Inj) 4 mg Q6H PRN IV NAUSEA AND/OR VOMITING; Start at 18:00 Aspirin (Aspirin) 81 mg DAILY PO Last administered on 01/04/17 09:00; Admin Dose 81 MG; Start 01/03/17 at 09:00 Clopidogrel Bisulfate (plaVIX) 75 mg DAILY PO Last administered on 01/04/17 09 :00; Admin Dose 75 MG; Start 01/03/17 at 09:00 Acetaminophen (Tylenol Tab) 650 mg Q6H PRN PO PAIN LEVEL 1-3 OR FEVER; Start at 18:00 Acetaminophen/ Hydrocodone Bitart ([place] (5/325)) 1 tab Q6H PRN PO PAIN LEVEL 4 -6; Start 01/02/17 at 18:00 Morphine Sulfate (morphine) 2 mg Q4H PRN IV PAIN LEVEL 7-10; Start 01/02/17 at 18:00 Magnesium Hydroxide (Milk Of Mag) 30 ml DAILY PRN PO CONSTIPATION; Start at 18:00 Bisacodyl (Dulcolax) 5 mg DAILY PRN PO CONSTIPATION; Start 01/02/17 at 18:00 Famotidine (Pepcid) 20 mg Q12 PO Last administered on 01/04/17t 09:00; Admin Dose 20 MG; Start 01/02/17 at 21:00 Atorvastatin Calcium (Lipitor) 80 mg HS PO ; Start 01/04/17 at 21:00 COLLIN WINTER NP Jan 04, 2017 09:37
[2017-01-04] MEDS ORDERED: ENOXAPARIN 40 MG/0.4 ML SYG SC SCH (10:00)
--- NOTE | 2017-01-04 14:21 | CONS ---
Date/Time of Note Date/Time of Note DATE: 01/04/17 TIME: 14:14 Assessment/Plan Assessment/Plan Additional Assessment/Plan Paroxysmal atrial fibrillation Acute CVA Hypertension Low normal ejection fraction 50% -Patient with CVA with multiple regions with high likelihood of emboli secondary to atrial fibrillation. Agree with starting anticoagulation. Unfortunately patient without insurance and would recommend case management involvement for assistance. Ideally, patient to be on a novel anticoagulant. Continue statin therapy and beta-delgado and titrate as heart rate and blood pressure permits. Consultation Date/Type/Reason Admit Date/Time Type of Consultation: cv Reason for Consultation Atrial fibrillation and CVA Hx of Present Illness This is a 61-year-old male who has not seen a physician in a number of years because of lack of insurance who presents with altered mental status and arm weakness. Patient found to have multiple embolic CVAs. On telemetry, patient with episodes of paroxysmal atrial fibrillation. Patient denies any chest pain , shortness of breath or palpitations. Denies any exertional chest pain or shortness of breath prior to this episode. Denies any bleeding issues. Unfortunately because of lack of insurance, he has not received medical care in a number of years. 12 point review of systems was performed with all pertinent positives and negatives mentioned above and all else is negative Eyes: no complaints ENT: no complaints Respiratory: no complaints Cardiovascular: no complaints Gastrointestinal: no complaints Genitourinary: no complaints Musculoskeletal: no complaints Skin: no complaints Neurologic: no complaints Lymphatic: no complaints Psychological: anxiety Immunologic: no complaints Past Medical History Medical History: hypertension Family History Significant Family History: no pertinent family hx Social History Alcohol Use: none Smoking Status: Current every day smoker Drug Use: marijuana Exam/Review of Systems Vital Signs Vitals Vital Signs Date Time Temp Pulse Resp B/P Pulse Ox O2 Delivery O2 Flow Rate FiO2 01/04/17 12:46 87 01/04/17 12:00 98.4 18 157/91 98 Room Air 01/03/17 01:50 2.0 Intake and Output 01/03/17 01/03/17 01/04/17 15:00 23:00 07:00 Intake Total 750 ml Balance 750 ml Exam No apparent distress Constitutional: alert, oriented, well developed Head: normocephalic Respiratory: other (Coarse breath sounds bilaterally, no wheezing) Cardiovascular: irregular rhythm, other (S1-S2 heard) Gastrointestinal: bowel sounds, non-tender, soft Extremities: edema (Trace) Results Result Diagram: 01/04/17 0551 01/04/17 0551 Results 24 hrs Laboratory Tests Test 01/04/17 05:51 White Blood Count 12.9 H Red Blood Count 6.03 Hemoglobin 18.4 H Hematocrit 54.3 H Mean Corpuscular Volume 90.0 Mean Corpuscular Hemoglobin 30.5 Mean Corpuscular Hemoglobin Concent 33.9 Red Cell Distribution Width 12.6 Platelet Count 237 Mean Platelet Volume 9.4 Neutrophils % 49.2 Lymphocytes % 34.9 Monocytes % 10.0 Eosinophils % 4.5 Basophils % 0.9 Nucleated Red Blood Cells % 0.0 Neutrophils # 6.3 Lymphocytes # 4.5 H Monocytes # 1.3 H Eosinophils # 0.6 H Basophils # 0.1 Nucleated Red Blood Cells # 0.0 Sodium Level 142 Potassium Level 4.0 Chloride Level 104 Carbon Dioxide Level 24 Anion Gap 18 H Blood Urea Nitrogen 17 Creatinine 1.03 Glucose Level 114 Calcium Level 9.5 Phosphorus Level 3.6 Magnesium Level 2.0 Total Bilirubin 1.6 H Direct Bilirubin 0.00 Indirect Bilirubin 1.6 H Aspartate Amino Transf (AST/SGOT) 29 Alanine Aminotransferase (ALT/SGPT) 25 Alkaline Phosphatase 86 Total Protein 8.5 H Albumin 4.4 Globulin 4.10 H Albumin/Globulin Ratio 1.07 HIV (1&2) Antibody Pending Medications Medications Current Medications Ondansetron HCl (Zofran Inj) 4 mg Q6H PRN IV NAUSEA AND/OR VOMITING; Start at 18:00 Aspirin (Aspirin) 81 mg DAILY PO Last administered on 01/04/17 09:00; Admin Dose 81 MG; Start 01/03/17 at 09:00 Clopidogrel Bisulfate (plaVIX) 75 mg DAILY PO Last administered on 01/04/17 09 :00; Admin Dose 75 MG; Start 01/03/17 at 09:00 Acetaminophen (Tylenol Tab) 650 mg Q6H PRN PO PAIN LEVEL 1-3 OR FEVER; Start at 18:00 Acetaminophen/ Hydrocodone Bitart (Homer (5/325)) 1 tab Q6H PRN PO PAIN LEVEL 4 -6; Start 01/02/17 at 18:00 Morphine Sulfate (morphine) 2 mg Q4H PRN IV PAIN LEVEL 7-10; Start 01/02/17 at 18:00 Magnesium Hydroxide (Milk Of Mag) 30 ml DAILY PRN PO CONSTIPATION; Start at 18:00 Bisacodyl (Dulcolax) 5 mg DAILY PRN PO CONSTIPATION; Start 01/02/17 at 18:00 Famotidine (Pepcid) 20 mg Q12 PO Last administered on 01/04/17 09:00; Admin Dose 20 MG; Start 01/02/17 at 21:00 Atorvastatin Calcium (Lipitor) 80 mg HS PO ; Start 01/04/17 at 21:00 Metoprolol Tartrate (Lopressor) 25 mg BID PO Last administered on 01/04/17 09: 41; Admin Dose 25 MG; Start 01/04/17 at 09:30 Enoxaparin Sodium (Lovenox) 40 mg DAILY SC Last administered on 01/04/17 09:45 ; Admin Dose 40 MG; Start 01/04/17 at 10:00 Procedures Procedures ECG done on January 02 demonstrates sinus rhythm at 73 bpm with PACs, inferior Q waves. Telemetry with atrial fibrillation with rates ranging from 80s-150s Robby Brito DO Jan 04, 2017 14:21
--- NOTE | 2017-01-04 15:59 | PDOCDIS ---
Discharge Instructions DIAGNOSIS Discharge Diagnosis Ischemic stroke. CONDITION Patient Condition: Stable HOME CARE INSTRUCTIONS: Special Diet: CARDIAC DIET. FOLLOW UP/APPOINTMENTS Follow-up Plan Freddy Zamarripa MD Specialty: Internal Medicine Office Address: [address] [place] [address] [place], [place] [id number] Office OTHER ORDERS: Other Orders: 1. Start taking medications as per prescription. 2. Follow a low-cholesterol diet. 3. Resume activities as tolerated. Use caution while using sharp instruments and try to avoid contact sports. 4. Follow-up with your primary care physician within 1 week. Have your primary care physician arrange for outpatient neurology and cardiac follow-up. If you do not have a primary care physician, please call Dr. Freddy Zamarripa's office. 5. Please call 911 or go to the nearest emergency room if you have sudden onset of focal weakness, speech disturbances, or any other unusual signs/ symptoms. COLLIN WINTER NP Jan 04, 2017 15:59
[2017-01-04] MEDS ORDERED: RIVA20TA PO (16:01)
[2017-01-04] MEDS ORDERED: METO-448 PO (16:01)
[2017-01-04] MEDS ORDERED: CLOP75TA28 PO (16:01)
[2017-01-04] MEDS ORDERED: ASPI-664 PO (16:01)
[2017-01-04] MEDS ORDERED: ATOR80TA75 PO (16:01)
--- NOTE | 2017-01-04 16:47 | DS ---
Date/Time of Note Date/Time of Note DATE: 01/04/17 TIME: 16:44 Discharge Summary Admission/Discharge Info Admit Date/Time Jan 02, 2017 at 15:18 Discharge Date/Time Discharge Diagnosis 1. Acute ischemic stroke [multiple]. 2. Paroxysmal atrial fibrillation. 3. Essential hypertension. 4. Nicotine use. Patient Condition: Stable Consults 1. Bryn Robert MD, Neurology. 2. Robby Brito DO, Cardiology. Procedures Brain CT IMPRESSION: 1. Evidence of acute ischemia/infarct in the right inferior parietal lobe, right posterior temporal lobe, and right frontal operculum. More superiorly within the right parietal lobe and adjacent to the trigone of the right lateral ventricle, there are areas of encephalomalacia, compatible with old/chronic infarcts. MRI brain may provide a more sensitive and specific evaluation for acute and/or chronic ischemic injury. 2. No evidence of acute intracranial hemorrhage. Brain MRI IMPRESSION: 1. Multi focal restricted diffusion compatible with areas of acute / early subacute ischemic infarction. The distribution mitigates in favor of a likely embolic disease. No hemorrhagic transformation. 2. Diffusion weighted signal hyperintensity in the right middle frontal gyrus without restricted diffusion suggestive of late subacute or chronic ischemic infarction. 3. Remote ischemic infarction and encephalomalacia with surrounding gliosis involving the right temporal and occipital lobes with ex vacuo dilatation of the right lateral ventricle. Remote lacunar infarcts in the left cerebellar hemisphere. 4. Moderate central cerebral and cerebellar volume loss. Carotid Doppler IMPRESSION: 1. 50-69% stenosis of the left internal carotid artery. 2. No significant stenosis of the right carotid arteries. 3. Antegrade flow in both vertebral arteries. 2D Echocardiogram Conclusions Lower limits of normal systolic function. Normal left ventricular cavity size. Mild concentric left ventricular hypertrophy. Ejection fraction is visually estimated at 50 %. Abnormal Diastolic Function. Normal right ventricular size. Normal right ventricular systolic function. The left atrium is normal in size. The right atrium is normal in size. No significant valvular stenosis or regurgitation seen. Normal pericardium with no significant pericardial effusion. Hx of Present Illness Reason for admission: Altered mental status. Consultants 1. Bryn Robert MD, Neurology. This is a 61-year-old male who denied any significant past medical history other than possible history of essential hypertension who was brought to the emergency room after he started acute mental status changes. As per the patient he was sitting at work. The patient's coworkers noted him shaking and and as per the patient he went backward with his rocking chair. The patient denied hitting his head. There was no reported seizures. A code stroke was activated in the emergency room. The patient underwent a stat CT scan of the brain that showed evidence of acute ischemia/infarct in the right inferior parietal lobe, right posterior temporal lobe and right frontal operculum. The patient was seen by a telemetry neurologist. Telemetry neurologist recommended no TPA. However, the neurologist recommended aspirin and Plavix. Hospital Course The patient was admitted to inpatient telemetry floor. A neurology consult was obtained. The patient's brain MRI showed multi focal restricted diffusion compatible with areas of acute/early subacute ischemic infarction. The MRI also revealed remote ischemic infarction and encephalomalacia with surrounding gliosis involving the right temporal and occipital lobes with remote lacunar infarcts in the left cerebellar hemisphere. The brain MRI also revealed evidence of late subacute or chronic ischemic infarction in the right middle frontal gyrus. The patient's stroke was suggestive of embolic disease. The patient was maintained on dual antiplatelet therapy and statins. The patient was seen by neurology and increased the statin dosing. Neurology recommended anticoagulation provided the embolic nature of the patient's stroke. The patient was noticed to have paroxysmal atrial fibrillation. The patient denied any history of any heart problems. Consequently, cardiology was consulted. Cardiology recommended to start the patient on one of the novel anticoagulants for stroke prophylaxis. The patient's 2D echocardiogram showed left ventricular ejection fraction of 50% with mild concentric left ventricular hypertrophy. The patient was started on beta-delgado therapy for rate control and blood pressure control. The patient's heart rate remained stable. The patient is a current nicotine user. The patient was advised on the importance of quitting the use of nicotine. The patient was seen and evaluated by physical therapy, occupational therapy, and speech therapy. The patient was provided with a single-point cane upon discharge. The patient had a stable hospital course. The patient was cleared by consultants to be discharged home. The patient's insurance jamir approved for Xarelto for long-term anticoagulation. This was confirmed by the caser in. Discharge Instructions 1. Start taking medications as per prescription. 2. Follow a low-cholesterol diet. 3. Resume activities as tolerated. Use caution while using sharp instruments and try to avoid contact sports. 4. Follow-up with your primary care physician within 1 week. Have your primary care physician arrange for outpatient neurology and cardiac follow-up. If you do not have a primary care physician, please call Dr. Freddy Zamarripa's office. 5. Please call 911 or go to the nearest emergency room if you have sudden onset of focal weakness, speech disturbances, or any other unusual signs/ symptoms. The patient verbalized understanding of his discharge instructions. I would like to thank all the consultants for seeing the patient and providing clinical recommendations. The case and management of this patient was fully discussed with Dr. Perse. Home Meds Active Scripts Rivaroxaban* (Xarelto*) 20 Mg Tablet, 20 MG PO WITH DINNER, #30 TAB Prov:COLLIN WINTER NP 01/04/17 Metoprolol Tartrate* (Lopressor*) 25 Mg Tab, 25 MG PO BID, #30 TAB Prov:COLLIN WINTER NP 01/04/17 Atorvastatin* (Atorvastatin*) 80 Mg Tablet, 80 MG PO HS for 30 Days, #30 TAB Prov:COLLIN WINTER NP 01/04/17 Clopidogrel Bisulfate (Clopidogrel) 75 Mg Tablet, 75 MG PO DAILY for 30 Days, # 30 TAB Prov:COLLIN WINTER NP 01/04/17 Aspirin (Low Dose Aspirin) 81 Mg Tablet.dr 81 MG PO DAILY for 30 Days, #30 TAB Prov:COLLIN WINTER NP 01/04/17 Follow-up Plan Follow-up with your primary care physician 1 week. If you do not have a primary care physician, please call Dr. Freddy Zamarripa's office. Primary Care Provider Care Physician No Primary Time spent on discharge: > 30 minutes Pending Labs Laboratory Tests Test 01/04/17 05:51 White Blood Count 12.910^3/ul (4.8-10.8) Red Blood Count 6.0310^6/ul (4.70-6.10) Hemoglobin 18.4g/dl (14.0-18.0) Hematocrit 54.3% (42.0-52.0) Mean Corpuscular Volume 90.0fl (82.0-101.0) Mean Corpuscular Hemoglobin 30.5pg (29.0-33.0) Mean Corpuscular Hemoglobin Concent 33.9g/dl (32.0-37.0) Red Cell Distribution Width 12.6% (11.5-14.5) Platelet Count 44593^3/UL (140-415) Mean Platelet Volume 9.4fl (7.4-10.4) Neutrophils % 49.2% (39.0-77.0) Lymphocytes % 34.9% (15.0-51.0) Monocytes % 10.0% (0.0-11.0) Eosinophils % 4.5% (0.0-7.0) Basophils % 0.9% (0.0-2.0) Nucleated Red Blood Cells % 0.0/100WBC (0.0-0.0) Neutrophils # 6.310^3/ul (1.6-7.5) Lymphocytes # 4.510^3/ul (0.8-2.9) Monocytes # 1.310^3/ul (0.3-0.9) Eosinophils # 0.610^3/ul (0.0-0.5) Basophils # 0.110^3/ul (0.0-0.1) Nucleated Red Blood Cells # 0.010^3/ul (0.0-0.0) Sodium Level 142mmol/L (135-144) Potassium Level 4.0mmol/L (3.5-5.1) Chloride Level 104mmol/L (97-110) Carbon Dioxide Level 24mmol/L (21-31) Anion Gap 18 (8-16) Blood Urea Nitrogen 17mg/dl (7-20) Creatinine 1.03mg/dl (0.61-1.24) Glucose Level 114mg/dl (70-220) Calcium Level 9.5mg/dl (8.4-10.2) Phosphorus Level 3.6mg/dl (2.5-4.9) Magnesium Level 2.0mg/dl (1.7-2.5) Total Bilirubin 1.6mg/dl (0.2-1.3) Direct Bilirubin 0.00mg/dl (0.00-0.20) Indirect Bilirubin 1.6mg/dl (0-1.1) Aspartate Amino Transf (AST/SGOT) 29IU/L (15-46) Alanine Aminotransferase (ALT/SGPT) 25IU/L (13-69) Alkaline Phosphatase 86IU/L (42-121) Total Protein 8.5g/dl (6.1-8.1) Albumin 4.4g/dl (3.3-4.9) Globulin 4.10g/dl (1.3-3.2) Albumin/Globulin Ratio 1.07 HIV (1&2) Antibody Pending COLLIN WINTER NP Jan 04, 2017 16:47 COLLIN WINTER NP Jan 04, 2017 16:47
[2017-01-04] MEDS ORDERED: APIXABAN 5 MG TABLET PO SCH (21:00)
[2017-01-04] MEDS ORDERED: ATORVASTATIN 80 MG TAB PO SCH (21:00)
== END 2017-01-04 17:20 | disposition home or self-care (01) | DRG 65 ==
LOC: E/R 13:58 → EDBD 13:58 → TEL 15:18
PROVIDERS: ADMIT Internal Medicine; ATTEND Internal Medicine
DX: I63.411 Cerebral infarction due to embolism of right middle cerebral artery (principal); G81.94 Hemiplegia, unspecified affecting left nondominant side; I10 Essential (primary) hypertension; F17.210 Nicotine dependence, cigarettes, uncomplicated; I65.22 Occlusion and stenosis of left carotid artery; I48.0 Paroxysmal atrial fibrillation; Z91.14 Patient's other noncompliance with medication regimen; Z79.82 Long term (current) use of aspirin; Z82.49 Family history of ischemic heart disease and other diseases of the circulatory system; Z86.73 Personal history of transient ischemic attack (TIA), and cerebral infarction without residual deficits
CPT/HCPCS: 36415; 70450; 70551; 71010; 80048; 80053; 80061; 80306; 80307; 81003; 82140; 82550; 82553; 82962; 83036; 83735; 84100; 84439; 84443; 84484; 85025; 85610; 85730; 86703; 92523; 92610; 93005; 93306; 93880; 97116; 97162; 97166; 97530; 97535; J1650